=== PATIENT | male | born 1950 | race Caucasian/White ===

== ENCOUNTER 2019-10-01 11:49 | Observation (INO) ==
[2019-10-01 13:00] LABS: Basophils % 0.5 % (0.0-0.8); Eosinophils # 0.1 10*3/uL (0.0-0.87); Eosinophils % 1.8 % (0.00-10.9); Hematocrit 45.1 VOL% (42.0-52.0); Hemoglobin 14.1 GM/DL (14.0-18.0); Immature Granulocytes % 0.9 %; Immature Granulocytes Absolute 0.07 #; Lymphocytes % 13.4 % (21.2-54.2); Mean Corpuscular HGB Conc 31.3 GM/DL (32-36); Mean Corpuscular Volume 91.9 FL (87-102); Mean Platelet Volume 12.2 FL (9.6-12.0); Monocytes % 8.1 % (1.7-12.7); Neutrophils % 75.3 % (38.7-73.9); Platelet Count 171 T/CUMM (130-400); Red Blood Count 4.91 MC/CUMM (3.8-5.5); Red Cell Distribution Width 15.5 % (9.3-17.3); White Blood Count 7.7 T/CUMM (4-12)
[2019-10-01 13:20] LABS: Calcium 8.9 MG/DL (8.5-10.1); Osmolality,Calculated 287.1 MOS/KG (273-304)
[2019-10-01 14:49] LABS: Apearance,Urine CLEAR (Clear); Bacteria,Urine Occasional /HPF (Few); Bilirubin,Urine Negative (Negative); Blood, Urine Small mg/dL (Negative); Glucose,Urine (UA) Negative (Negative); Hyaline Casts,Urine 1 /LPF (0-3); Ketones,Urine Negative (Negative); Nitrite,Urine Negative (Negative); Protein,Urine >=500 MG/DL; RBC,Urine 1 /HPF (0-4); Urine Color Yellow (Yellow); Urine Specific Gravity 1.016 (1.001-1.035); Urine Urobilinogen < 2.0 EU/DL (0.2-1.0); WBC,Urine 1 /HPF (0-6)
[2019-10-01] MEDS ORDERED: GLUCAGON 1 MG VIAL IM PRN (15:54)
[2019-10-01] MEDS ORDERED: ONDANSETRON 4 MG/2 ML VIAL IV PRN (15:54)
[2019-10-01] MEDS ORDERED: DEXTROSE 50% 25 GM/50 ML VIAL IV PRN (15:54)
[2019-10-01] MEDS ORDERED: DOCUSATE SODIUM 100 MG CAPSULE PO PRN (15:54)
[2019-10-01] MEDS ORDERED: NICOTINE 21 MG/24 HR PATCH TRANSDERM PRN (15:54)
[2019-10-01 16:14] LABS: Free T4 (Free Thyroxine) 0.73 NG/DL (0.76-1.46)
[2019-10-01 16:26] LABS: Risk Ratio 4.55; Thyroid Stimulating Hormone 4.82 uIU/ml (0.358-3.74); VLDL CHOLESTEROL 30.8 MG/DL
[2019-10-01] MEDS: amLODIPine 10 MG TABLET PO SCH (17:25)
[2019-10-01] MEDS: LEVOFLOXACIN INJ 500 MG in PREMIX 1 EACH IV SCH (17:36)
[2019-10-01] MEDS ORDERED: cefTRIAXone 1,000 MG in SYRINGE 1 EACH IV ONE (17:38)
[2019-10-01] MEDS: INSULIN LISPRO 100 UNIT/ML SUBCUT SCH ×2 (18:28→21:25)
[2019-10-01] MEDS: SODIUM CHLORIDE 0.9% 1,000 ML IV SCH (18:47)
[2019-10-01] MEDS: LOSARTAN 50 MG TABLET PO SCH (18:47)
[2019-10-01] MEDS: ENOXAPARIN 40 MG/0.4 ML SYRINGE SUBCUT SCH (21:28)
[2019-10-02 05:48] LABS: Basophils # 0.1 10*3/uL (0.0-0.2); Basophils % 0.8 % (0.0-0.8); Eosinophils # 0.2 10*3/uL (0.0-0.87); Eosinophils % 2.1 % (0.00-10.9); Hematocrit 46.5 VOL% (42.0-52.0); Hemoglobin 14.5 GM/DL (14.0-18.0); Immature Granulocytes Absolute 0.08 #; Lymphocytes # 1.2 10*3/uL (1.4-4.0); Lymphocytes % 16.2 % (21.2-54.2); Mean Corpuscular HGB Conc 31.2 GM/DL (32-36); Mean Platelet Volume 12.1 FL (9.6-12.0); Neutrophils % 70.9 % (38.7-73.9); Platelet Count 180 T/CUMM (130-400); Red Cell Distribution Width 15.6 % (9.3-17.3); White Blood Count 7.7 T/CUMM (4-12)
[2019-10-02 06:09] LABS: Albumin 3.3 G/DL (3.4-5.0); Bilirubin,Total 0.7 MG/DL (0.2-1.0); Calcium 8.7 MG/DL (8.5-10.1); Total Protein 7.3 G/DL (6.4-8.3)
[2019-10-02] MEDS: SODIUM CHLORIDE 0.9% 1,000 ML IV SCH ×2 (06:33→09:14)
[2019-10-02] MEDS: LOSARTAN 50 MG TABLET PO SCH (09:12)
[2019-10-02] MEDS: INSULIN LISPRO 100 UNIT/ML SUBCUT SCH ×4 (09:12→23:35)
[2019-10-02] MEDS: amLODIPine 10 MG TABLET PO SCH (09:12)
[2019-10-02] MEDS: PANTOPRAZOLE 40 MG TABLET PO SCH (09:13)
[2019-10-02] MEDS ORDERED: FUROSEMIDE 40 MG TABLET PO SCH (10:30)
[2019-10-02] MEDS: ALBUTEROL/IPRATROPIUM 3 ML NEB RESP TX SCH ×2 (13:34→20:03)
[2019-10-02] MEDS: LEVOFLOXACIN INJ 500 MG in PREMIX 1 EACH IV SCH (15:27)
[2019-10-02] MEDS: FUROSEMIDE 40 MG/4 ML VIAL IV SCH (15:27)
[2019-10-02] MEDS: ENOXAPARIN 40 MG/0.4 ML SYRINGE SUBCUT SCH (20:40)
[2019-10-03] MEDS: ALBUTEROL/IPRATROPIUM 3 ML NEB RESP TX SCH ×4 (00:58→19:27)
[2019-10-03 05:56] LABS: Basophils % 0.5 % (0.0-0.8); Eosinophils # 0.2 10*3/uL (0.0-0.87); Eosinophils % 2.1 % (0.00-10.9); Hematocrit 41.2 VOL% (42.0-52.0); Hemoglobin 12.8 GM/DL (14.0-18.0); Immature Granulocytes % 1.4 %; Immature Granulocytes Absolute 0.11 #; Lymphocytes # 1.1 10*3/uL (1.4-4.0); Lymphocytes % 14.1 % (21.2-54.2); Mean Corpuscular HGB Conc 31.1 GM/DL (32-36); Mean Corpuscular Volume 93.6 FL (87-102); Mean Platelet Volume 12.4 FL (9.6-12.0); Monocytes % 11.8 % (1.7-12.7); Neutrophils % 70.1 % (38.7-73.9); Platelet Count 182 T/CUMM (130-400); Red Cell Distribution Width 15.5 % (9.3-17.3)
[2019-10-03] MEDS: INSULIN LISPRO 100 UNIT/ML SUBCUT SCH ×4 (07:59→20:27)
[2019-10-03] MEDS: amLODIPine 10 MG TABLET PO SCH (08:06)
[2019-10-03] MEDS: LOSARTAN 50 MG TABLET PO SCH (08:06)
[2019-10-03] MEDS: PANTOPRAZOLE 40 MG TABLET PO SCH (08:06)
[2019-10-03] MEDS: FUROSEMIDE 40 MG/4 ML VIAL IV SCH ×2 (08:06→15:55)
[2019-10-03 12:54] LABS: Protein/Creatinine Ratio,Urine 2.8 RATIO
[2019-10-03] MEDS: LEVOFLOXACIN INJ 500 MG in PREMIX 1 EACH IV SCH (15:55)
[2019-10-03] MEDS: ENOXAPARIN 40 MG/0.4 ML SYRINGE SUBCUT SCH (21:00)
[2019-10-04] MEDS: ALBUTEROL/IPRATROPIUM 3 ML NEB RESP TX SCH ×4 (00:41→19:05)
[2019-10-04 04:40] LABS: Basophils # 0.1 10*3/uL (0.0-0.2); Basophils % 0.7 % (0.0-0.8); Eosinophils # 0.2 10*3/uL (0.0-0.87); Eosinophils % 2.7 % (0.00-10.9); Hematocrit 40.4 VOL% (42.0-52.0); Hemoglobin 12.4 GM/DL (14.0-18.0); Immature Granulocytes % 0.7 %; Immature Granulocytes Absolute 0.05 #; Lymphocytes # 1.1 10*3/uL (1.4-4.0); Lymphocytes % 15.9 % (21.2-54.2); Mean Corpuscular HGB Conc 30.7 GM/DL (32-36); Mean Corpuscular Volume 93.3 FL (87-102); Mean Platelet Volume 11.9 FL (9.6-12.0); Platelet Count 175 T/CUMM (130-400); Red Blood Count 4.33 MC/CUMM (3.8-5.5); Red Cell Distribution Width 15.6 % (9.3-17.3); White Blood Count 6.9 T/CUMM (4-12)
[2019-10-04] MEDS: FUROSEMIDE 40 MG/4 ML VIAL IV SCH ×2 (08:46→16:27)
[2019-10-04] MEDS: LOSARTAN 50 MG TABLET PO SCH (08:46)
[2019-10-04] MEDS: INSULIN LISPRO 100 UNIT/ML SUBCUT SCH ×4 (08:46→22:04)
[2019-10-04] MEDS: PANTOPRAZOLE 40 MG TABLET PO SCH (08:46)
[2019-10-04] MEDS: amLODIPine 10 MG TABLET PO SCH (08:46)
[2019-10-04] MEDS ORDERED: SKIN HEALING OINT (AQUAPHOR) 50 GM TUBE TOP PRN (15:42)
[2019-10-04] MEDS: LEVOFLOXACIN INJ 500 MG in PREMIX 1 EACH IV SCH (16:27)
[2019-10-04] MEDS: ENOXAPARIN 40 MG/0.4 ML SYRINGE SUBCUT SCH (22:04)
[2019-10-05] MEDS: ALBUTEROL/IPRATROPIUM 3 ML NEB RESP TX SCH ×3 (00:30→13:56)
[2019-10-05 04:57] LABS: Basophils % 0.4 % (0.0-0.8); Eosinophils # 0.2 10*3/uL (0.0-0.87); Eosinophils % 2.5 % (0.00-10.9); Hematocrit 38.2 VOL% (42.0-52.0); Immature Granulocytes % 0.7 %; Immature Granulocytes Absolute 0.05 #; Lymphocytes # 1.1 10*3/uL (1.4-4.0); Lymphocytes % 14.9 % (21.2-54.2); Mean Corpuscular HGB Conc 31.4 GM/DL (32-36); Mean Corpuscular Volume 92.9 FL (87-102); Mean Platelet Volume 12.3 FL (9.6-12.0); Monocytes % 11.8 % (1.7-12.7); Neutrophils % 69.7 % (38.7-73.9); Platelet Count 177 T/CUMM (130-400); Red Blood Count 4.11 MC/CUMM (3.8-5.5); Red Cell Distribution Width 15.7 % (9.3-17.3); White Blood Count 7.2 T/CUMM (4-12)
[2019-10-05 05:21] LABS: Bilirubin,Total 0.5 MG/DL (0.2-1.0); Calcium 7.9 MG/DL (8.5-10.1); Osmolality,Calculated 288.3 MOS/KG (273-304); Total Protein 6.6 G/DL (6.4-8.3)
[2019-10-05] MEDS: INSULIN LISPRO 100 UNIT/ML SUBCUT SCH ×2 (07:51→12:17)
[2019-10-05] MEDS: LOSARTAN 50 MG TABLET PO SCH (09:01)
[2019-10-05] MEDS: PANTOPRAZOLE 40 MG TABLET PO SCH (09:01)
[2019-10-05] MEDS: amLODIPine 10 MG TABLET PO SCH (09:01)
[2019-10-05] MEDS: FUROSEMIDE 40 MG/4 ML VIAL IV SCH (09:01)
[2019-10-05 11:50] VITALS: BP 116/54
== END 2019-10-05 14:15 | disposition home or self-care (01) ==
LOC: EDUNIT# → EDBD → N.EDINP 11:49 → N.ED 11:49 → SUATTDRO 15:33 → N.5E 16:36
PROVIDERS: ADMIT Family Medicine; ATTEND Internal Medicine

== ENCOUNTER 2020-01-13 05:21 | Observation (INO) ==
[2020-01-13] MEDS ORDERED: methylPREDNISolone SOD SUC 125 MG/2 ML VIAL IV STA (05:31)
[2020-01-13] MEDS ORDERED: FUROSEMIDE 40 MG/4 ML VIAL IV STA (05:31)
[2020-01-13] MEDS ORDERED: DIPH/TET/ACEL PERT BOOSTER VACCINE 0.5 ML VIAL IM ONE (05:31)
[2020-01-13] MEDS ORDERED: ALBUTEROL NEB SOLN 5 MG/ML 20 ML/BOTTLE CONT NEB STA (05:47)
[2020-01-13 05:48] LABS: Basophils # 0.1 10*3/uL (0.0-0.2); Basophils % 0.6 % (0.0-0.8); Eosinophils # 0.1 10*3/uL (0.0-0.87); Eosinophils % 1.2 % (0.00-10.9); Hematocrit 42.8 VOL% (42.0-52.0); Immature Granulocytes % 0.7 %; Immature Granulocytes Absolute 0.07 #; Lymphocytes # 0.9 10*3/uL (1.4-4.0); Lymphocytes % 8.9 % (21.2-54.2); Mean Corpuscular HGB Conc 29.9 GM/DL (32-36); Mean Corpuscular Volume 91.6 FL (87-102); Mean Platelet Volume 10.7 FL (9.6-12.0); Monocytes % 7.2 % (1.7-12.7); Neutrophils % 81.4 % (38.7-73.9); Platelet Count 237 T/CUMM (130-400); Red Blood Count 4.67 MC/CUMM (3.8-5.5); Red Cell Distribution Width 15.4 % (9.3-17.3); White Blood Count 9.6 T/CUMM (4-12)
[2020-01-13 06:02] LABS: Allen Test Positive
[2020-01-13 06:05] LABS: ABG HCO3 23.2 MMOL/L (20-26); ABG Oxygen Saturation 77.6 % (95-100); ABG PCO2 41.1 MM HG (35-48); ABG PH 7.377 (7.35-7.45); ABG PO2 43.3 MM HG (80-95); ABG TCO2 21.4 MMOL/L (23-27)
[2020-01-13 06:08] LABS: Albumin 2.7 G/DL (3.4-5.0); Bilirubin,Total 0.4 MG/DL (0.2-1.0); CKMB % 2.8 %; Calcium 8.9 MG/DL (8.5-10.1); Hemoglobin 12.9 GM/DL (14.0-18.0); Osmolality,Calculated 285.5 MOS/KG (273-304); Total Protein 7.6 G/DL (6.4-8.3)
[2020-01-13 06:10] LABS: Troponin I 0.057 NG/ML (0.00-0.045)
[2020-01-13] MEDS ORDERED: ONDANSETRON 4 MG/2 ML VIAL IV PRN (10:33)
[2020-01-13] MEDS ORDERED: DEXTROSE 10% 250 ML BAG IV PRN (10:54)
[2020-01-13] MEDS ORDERED: GLUCAGON 1 MG VIAL IM PRN (10:54)
[2020-01-13] MEDS ORDERED: SKIN HEALING OINT (AQUAPHOR) 50 GM TUBE TOP PRN (12:48)
[2020-01-13 12:51] LABS: Apearance,Urine CLEAR (Clear); Bilirubin,Urine Negative (Negative); Blood, Urine Moderate mg/dL (Negative); Glucose,Urine (UA) 50 mg/dL (Negative); Hyaline Casts,Urine 7 /LPF (0-3); Ketones,Urine Negative (Negative); Mucus,Urine Occasional /LPF (Occasional); Nitrite,Urine Negative (Negative); Protein,Urine 100 MG/DL; RBC,Urine 74 /HPF (0-4); Squamous Epithelial Cell,Urine Occasional /HPF (0-10); Urine Color Yellow (Yellow); Urine Specific Gravity 1.012 (1.001-1.035); Urine Urobilinogen < 2.0 EU/DL (0.2-1.0); WBC,Urine 2 /HPF (0-6)
[2020-01-13 13:19] LABS: CKMB % 3.2 %
[2020-01-13 13:21] LABS: Troponin I 0.382 NG/ML (0.00-0.045)
[2020-01-13] MEDS: ALBUTEROL/IPRATROPIUM 3 ML NEB RESP TX SCH ×2 (13:58→19:23)
[2020-01-13] MEDS: INSULIN LISPRO 100 UNIT/ML SUBCUT SCH ×3 (14:20→21:57)
[2020-01-13] MEDS: NICOTINE 21 MG/24 HR PATCH TRANSDERM SCH (14:25)
[2020-01-13 15:12] LABS: CKMB % 3.1 %
[2020-01-13 15:13] LABS: Troponin I 0.425 NG/ML (0.00-0.045)
[2020-01-13] MEDS: ACETAMINOPHEN 325 MG TABLET PO PRN (17:54)
[2020-01-14] MEDS: ALBUTEROL/IPRATROPIUM 3 ML NEB RESP TX SCH ×3 (00:28→13:22)
[2020-01-14] MEDS: ACETAMINOPHEN 325 MG TABLET PO PRN (01:17)
[2020-01-14 05:50] LABS: Calcium 8.3 MG/DL (8.5-10.1); Osmolality,Calculated 286.8 MOS/KG (273-304); Risk Ratio 3.79; Thyroid Stimulating Hormone 1.38 uIU/ml (0.358-3.74); VLDL CHOLESTEROL 21.6 MG/DL
[2020-01-14] MEDS: NICOTINE 21 MG/24 HR PATCH TRANSDERM SCH ×2 (06:08→08:27)
[2020-01-14 06:25] LABS: Basophils % 0.1 % (0.0-0.8); Hematocrit 41.2 VOL% (42.0-52.0); Hemoglobin 12.4 GM/DL (14.0-18.0); Immature Granulocytes % 0.8 %; Lymphocytes # 0.8 10*3/uL (1.4-4.0); Lymphocytes % 6.5 % (21.2-54.2); Mean Corpuscular HGB Conc 30.1 GM/DL (32-36); Mean Corpuscular Volume 90.9 FL (87-102); Mean Platelet Volume 11.9 FL (9.6-12.0); Monocytes % 6.4 % (1.7-12.7); Neutrophils % 86.2 % (38.7-73.9); Platelet Count 258 T/CUMM (130-400); Red Blood Count 4.53 MC/CUMM (3.8-5.5); Red Cell Distribution Width 15.5 % (9.3-17.3); White Blood Count 11.9 T/CUMM (4-12)
[2020-01-14] MEDS: INSULIN LISPRO 100 UNIT/ML SUBCUT SCH ×2 (08:27→12:40)
[2020-01-14] MEDS ORDERED: PANTOPRAZOLE 40 MG TABLET PO SCH (09:00)
[2020-01-14 12:42] VITALS: BP 194/86
== END 2020-01-14 15:07 ==
LOC: EDUNIT# → EDBD → N.EDINP 05:21 → N.ED 05:21 → N.2W 10:22
PROVIDERS: ADMIT Internal Medicine; ATTEND Internal Medicine